=== PATIENT | female | born 1945 | race Caucasian/White ===

== ENCOUNTER → 2016-08-19 08:28 | Outpatient (CLI) | payer MEDICARE | END | disposition home or self-care (01) | LOC: D.CT 08:28 | DX: R19.7 Diarrhea, unspecified (principal); R10.84 Generalized abdominal pain ==

== ENCOUNTER 2018-08-09 13:27 | Observation (INO) | payer OTHER ==
[~2018-08-09] VITALS: Ht 170.2 cm; Wt 57.1 kg
[2018-08-09] VITALS (7 sets, daily range): BP systolic 107–192; BP diastolic 57–90; BMI 19.3
[2018-08-09] MEDS ORDERED: ULTRAM50 MG PO (13:44)
[2018-08-09] MEDS ORDERED: PREVACID15 MG (13:45)
[2018-08-09] MEDS ORDERED: LISINOPRIL-HCT1 EAC8 PO (13:45)
[2018-08-09 14:38] LABS: BASOPHILS 0.3 % (0-2); EOSINOPHILS 0.5 % (0-7); HEMATOCRIT 40.9 % (36.0-48.0); HEMOGLOBIN 14.7 g/dL (12-16); IMMATURE GRANULOCYTES 0.1 % (0-5); LYMPHOCYTES 13.8 % (15-50); MCH 32.4 pg (26.0-34.0); MCHC 35.9 g/dL (31.0-37.0); MCV 90.1 fL (80.0-100.0); MEAN PLATELET VOLUME 10.1 fL (7.4-10.4); MONOCYTES 7.1 % (2-11); NEUTROPHILS 78.2 % (40-80); PLATELET COUNT 210 10x3/uL (130-400); RBC 4.54 10x6/uL (4.00-5.40); RDW 12.8 % (11.5-14.5); WBC 10.7 10x3/uL (4.8-10.8)
[2018-08-09 14:47] LABS: APPEARANCE CLEAR (CLEAR); BILIRUBIN NEGATIVE (NEGATIVE); COLOR YELLOW (YELLOW); GLUCOSE NEGATIVE (NEGATIVE); KETONE NEGATIVE (NEGATIVE); NITRITE NEGATIVE (NEGATIVE); PROTEIN NEGATIVE (NEGATIVE); UROBILINOGEN NORMAL (NORMAL)
[2018-08-09 14:57] LABS: ALBUMIN 3.7 g/dL (3.4-5.0); ALKALINE PHOSPHATASE 73 U/L (46-116); ALT (SGPT) 24 U/L (10-68); CALC OSMOLALITY 272 mosm/kg (275-300); CALCIUM 8.8 mg/dL (8.5-10.1); CARBON DIOXIDE 26.2 mmol/L (21.0-32.0); CHLORIDE - SERUM 99 mmol/L (98-107); CREATININE - SERUM 0.8 mg/dL (0.6-1.3); GLUCOSE 91 mg/dL (74-106); POTASSIUM - SERUM 4.1 mmol/L (3.5-5.1); PROTEIN - SERUM 7.1 g/dL (6.4-8.2); SODIUM 135 mmol/L (136-145); UREA NITROGEN 22 mg/dL (7-18); eGFR NON AFRICAN AMERICAN 75 mL/min (90-120)
[2018-08-09 15:08] LABS: CKMB 0.7 U/L (0.0-3.6); CREATINE KINASE 35 UL (21-215); MAGNESIUM - SERUM 1.7 mg/dL (1.8-2.4)
[2018-08-09 15:14] LABS: TROPONIN-I < 0.017 ng/mL (0.000-0.060)
[2018-08-09 15:35] LABS: INR 1.05 (0.85-1.17); PROTIME 13.2 SECONDS (11.6-15.0)
[2018-08-09 15:39] LABS: APTT 25.8 SECONDS (22.8-39.4)
[2018-08-10 00:18] VITALS: BP 134/63
[2018-08-10 04:34] VITALS: BP 144/68
[2018-08-10 06:24] LABS: BASOPHILS 0.6 % (0-2); EOSINOPHILS 2.2 % (0-7); HEMATOCRIT 38.3 % (36.0-48.0); HEMOGLOBIN 13.4 g/dL (12-16); LYMPHOCYTES 42.5 % (15-50); MCH 31.5 pg (26.0-34.0); MCV 90.1 fL (80.0-100.0); MEAN PLATELET VOLUME 10.6 fL (7.4-10.4); MONOCYTES 8.8 % (2-11); NEUTROPHILS 45.9 % (40-80); PLATELET COUNT 212 10x3/uL (130-400); RBC 4.25 10x6/uL (4.00-5.40); RDW 12.9 % (11.5-14.5)
[2018-08-10 06:26] LABS: WBC 7.2 10x3/uL (4.8-10.8)
[2018-08-10 06:50] LABS: ALBUMIN 3.5 g/dL (3.4-5.0); ANION GAP 10.9 mmol/L (8-16); BILIRUBIN - TOTAL 0.38 mg/dL (0.2-1.3); CALCIUM 8.8 mg/dL (8.5-10.1); CARBON DIOXIDE 26.8 mmol/L (21.0-32.0); CREATININE - SERUM 0.8 mg/dL (0.6-1.3); MAGNESIUM - SERUM 1.8 mg/dL (1.8-2.4); POTASSIUM - SERUM 3.7 mmol/L (3.5-5.1); PROTEIN - SERUM 6.5 g/dL (6.4-8.2)
[2018-08-10 07:41] VITALS: BP 144/56
[2018-08-10 09:16] VITALS: Ht 170.2 cm; Wt 57.1 kg
[2018-08-10 15:28] VITALS: BP 152/74
[2018-08-10] MEDS ORDERED: ASPIRIN325 MG PO (15:53)
--- NOTE | 2018-08-11 07:33 | MORECARE ---
CASE MANAGEMENT DISCHARGE SUMMARY PATIENT: MARE MCKOY UNIT: [id number] ADM DATE: 08/09/18 AGE: 73 : 47 SEX: F ROOM/BED: D.9227 AUTHOR: ADELINE PLATT PHYSICIAN: REFERRING PHYSICIAN: DENNIS GROVES MD DATE OF SERVICE: 08/11/18 Discharge Plan Patient Name: MARE MCKOY Facility: [facility]:[place] : 1945 Planned Disposition: Home Anticipated Discharge Date: 08/10/18 Discharge Date: 08/10/2018 Expected LOS: 1 Initial Reviewer: [id number] Initial Review Date: 08/11/2018 Generated: 08/11/18 8:33 am Patient Name: MARE MCKOY Page [id number] at 0733 All edits/amendments must be made on the electronic document DICTATION DATE: 08/11/18731 SUPERVISOR SEWER SYSTEM: SANDRITA 08/11/18 0732 RPT#: [id number] DC DATE:08/10/18 STATUS: DIS IN [facility] [address] [facility] [address] END OF REPORT
== END 2018-08-10 17:51 | disposition home or self-care (01) ==
LOC: D.ER 13:27 → D.EDHOLD 15:09 → D.M2 15:09 → OBSVTIME 16:00 → D.M2 17:05
PROVIDERS: Emergency Medicine; Family Medicine; ADMIT Family Medicine; ATTEND Family Medicine
DX: R07.9 Chest pain, unspecified (principal); R06.00 Dyspnea, unspecified; I10 Essential (primary) hypertension; E78.5 Hyperlipidemia, unspecified; F17.213 Nicotine dependence, cigarettes, with withdrawal; K51.90 Ulcerative colitis, unspecified, without complications; Z86.73 Personal history of transient ischemic attack (TIA), and cerebral infarction without residual deficits